=== PATIENT | male | born 1985 | race Caucasian/White ===

== ENCOUNTER 2019-02-27 15:14 | Inpatient (IN) | payer OTHER ==
[2019-02-27 15:45] LABS: #Basophils 0.1 thou/uL (0.0-0.2); #Eosinphils 0.3 thou/uL (0.0-0.7); #Lymphocytes 2.9 thou/uL (1.20-3.40); #Monocytes 0.8 thou/uL (0.11-0.59); #Neutrophils 4.6 thou/uL (1.40-6.50); %Eosinophils 3.8 % (0.0-10.0); %Lymphocytes 33.2 % (21.0-51.0); %Monocytes 8.7 % (0.0-10.0); %Neutrophils 53.2 % (42.0-75.0); Hemoglobin 9.1 g/dL (14.0-18.0); Mean Corpuscular HGB CONC 31.8 g/dL (32.0-36.0); Mean Corpuscular Hemoglobin 26.4 pg (27.0-31.0); Mean Corpuscular Volume 82.8 fL (78.0-98.0); Mean Platelet Volume 7.4 fL (7.4-10.4); Platelet Count 252 thou/uL (130-400); RBC Distribution Width 13.6 % (11.5-14.5); Red Blood Cell (RBC) Count 3.44 mill/uL (4.70-6.10); White Blood Cell (WBC) Count 8.7 thou/uL (4.8-10.8)
[2019-02-27 15:49] LABS: INR-International Normal Ratio 1.1; PTT 24.2 SEC (22.9-36.1); Prothrombin Time 13.7 SEC (12.0-14.7)
[2019-02-27 15:58] LABS: ALT (SGPT) 12 U/L (8-55); AST (SGOT) 15 U/L (5-34); Albumin 3.9 g/dL (3.5-5.0); Alkaline Phosphatase 44 U/L (40-110); Anion Gap 15 mmol/L (10-20); BUN (Urea Nitrogen) 24 mg/dL (8.9-20.6); Bilirubin, Total 0.4 mg/dL (0.2-1.2); Calc. Creatinine Clearance 0 mL/min (70-130); Calcium 8.8 mg/dL (7.8-10.44); Carbon Dioxide 23 mmol/L (22-29); Chloride 107 mmol/L (98-107); Estimated GFR-MDRD 61; Globulin 2.4 g/dL (2.4-3.5); Glucose 101 mg/dL (70-105); Potassium 3.5 mmol/L (3.5-5.1); Protein, Total 6.3 g/dL (6.0-8.3); Sodium 141 mmol/L (136-145)
[2019-02-27] MEDS ORDERED: Dextrose 5 %-0.45 % NaCl 1,000 ML IV SCH (17:45)
[2019-02-27 18:57] VITALS: BMI 31.5
[2019-02-27] MEDS ORDERED: Ondansetron PF 4 MG/2 ML Vial IVP PRN (19:38)
[2019-02-27] MEDS ORDERED: hydrALAZINE 20 MG/ML VIAL SLOW IVP PRN (19:38)
[2019-02-27] MEDS ORDERED: GoLYTELY 4,000 ml Bottle PO SCH (20:00)
[2019-02-27] MEDS: Dextrose 5 % And 0.9 % NaCl 1,000 ML IV SCH (20:00)
[2019-02-27] MEDS: Sodium Chloride 0.9% (PF) 10 ML VIAL FS PRN (20:31)
[2019-02-27] MEDS: Pantoprazole 40 MG VIAL IVP SCH (20:31)
[2019-02-27 22:08] LABS: Hemoglobin 8.5 g/dL (14.0-18.0); Platelet Count 221 thou/uL (130-400)
--- NOTE | 2019-02-28 00:04 | HP ---
PRIMARY CARE PHYSICIAN: He says he cannot remember the name, but it is at one of the outlying [facility], [place]. CHIEF COMPLAINT: "I started having bleeding last night." HISTORY OF PRESENT ILLNESS: Mr. Li is a pleasant 33-year-old gentleman who has a history of Meckel's diverticulum as a child. He says that he has a history of severe bleeding when he was around 6-years-old and required surgical resection of the Meckel's diverticulum at that time. He says he has not had any problems until last night. He says that he went to the bathroom and noticed that he had a small amount of fecal matter, but primarily blood in the toilet. He says he was not having any abdominal pain during this time. He said he had another episode at 3 a.m. and then once again at 6:00 a.m. He works nights and says he went to sleep around 6:00 a.m. and then woke up around 1:00 p.m. He said he had another episode and this time when he got off the toilet, he felt extremely dizzy. He walked a few feet toward his living room and then passed out. He says that he still feels a bit weak, but denies any chest pain. No difficulty breathing and he came to the ER for evaluation. In the ER, he had lab work done showed that his hemoglobin was low at 9.1. His creatinine was slightly elevated at 1.36, and he is being admitted for further treatment. REVIEW OF SYSTEMS: All systems were reviewed and are negative except for that mentioned in the history of present illness. PAST MEDICAL HISTORY: Significant for Meckel's diverticulum. PAST SURGICAL HISTORY: He has had exploratory lap and what sounds like resection of the Meckel's diverticulum as well as a small area of small intestines as well. ALLERGIES: PENICILLIN. SOCIAL HISTORY: He is . He is a nonsmoker. He drinks occasionally. He does not have any children currently. 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 FAMILY HISTORY: He had hypertension in his mother. CURRENT MEDICATIONS: None. He denies using any aspirin or Advil or Motrin recently. PHYSICAL EXAMINATION: GENERAL: He is alert and oriented. He appears to be in no acute distress. He is well developed and well nourished. VITAL SIGNS: Blood pressure was 134/84, heart rate 100, respiratory rate of 14, and he is afebrile. HEENT: Pupils are equal, round, and reactive to light. Extraocular muscles are intact. Sclerae anicteric. Throat, no erythema, no exudates. NECK: No adenopathy, no bruits. LUNGS: Clear to auscultation. There is no wheezing, no rales, no rhonchi. CARDIOVASCULAR: He has a normal S1 and S2. There is no S3 or S4. No murmurs, clicks, or rubs. ABDOMEN: Soft. It is nontender and nondistended. Positive for bowel sounds. No rebound. No guarding. No organomegaly. EXTREMITIES: There is no clubbing, cyanosis. No edema. NEUROLOGIC: The exam is nonfocal. LABORATORY DATA: White blood cell count is 8.7, hemoglobin is 9.1, hematocrit is 28.5, and platelet count is 252. INR is 1.1. Chemistry: Sodium 141, potassium 3.5, chloride is 107, CO2 is 23, BUN of 24, creatinine 1.36, glucose is 101. ASSESSMENT: This is a pleasant 33-year-old gentleman who has suffered what sounds like he is suffering a gastrointestinal bleed. He has had both bright red blood as well as dark blood, so therefore it is hard to determine the location. It could be again from the small intestines. He will be admitted to the [facility]. We will start him on IV fluid resuscitation. We will monitor his hemoglobin and hematocrit q.3-[address] him on IV proton pump inhibitor. Should his hemoglobin drop below 8, since this is an acute bleed, then we will likely need to transfuse him. Gastroenterology has already been consulted and the plan is for him to be prepped for a colonoscopy and possible EGD as well. 1. Hypertension. Since he will be n.p.o., we will place him on p.r.n. medications for blood pressure and we will of course hold off on any anticoagulation for deep venous thrombosis prophylaxis. Job ID: [id number]
[2019-02-28 00:41] LABS: Hemoglobin 8.4 g/dL (14.0-18.0); Platelet Count 233 thou/uL (130-400)
[2019-02-28] MEDS: Acetaminophen 325 MG TAB PO PRN ×2 (01:20→16:05)
[2019-02-28] MEDS ORDERED: GoLYTELY 4,000 ml Bottle PO SCH (03:00)
[2019-02-28] MEDS: Dextrose 5 % And 0.9 % NaCl 1,000 ML IV SCH ×3 (03:22→18:21)
[2019-02-28 06:09] LABS: Hemoglobin 8.2 g/dL (14.0-18.0); Platelet Count 271 thou/uL (130-400)
[2019-02-28 06:38] LABS: Anion Gap 12 mmol/L (10-20); BUN (Urea Nitrogen) 12 mg/dL (8.9-20.6); Calc. Creatinine Clearance 127 mL/min (70-130); Calcium 8.4 mg/dL (7.8-10.44); Carbon Dioxide 25 mmol/L (22-29); Chloride 109 mmol/L (98-107); Estimated GFR-MDRD 63; Glucose 105 mg/dL (70-105); Potassium 3.8 mmol/L (3.5-5.1); Sodium 142 mmol/L (136-145)
[2019-02-28] MEDS: Pantoprazole 40 MG VIAL IVP SCH ×2 (08:14→21:07)
--- NOTE | 2019-02-28 13:40 | OP ---
DATE OF PROCEDURE: 02/28/2019 PROCEDURES PERFORMED: Esophagogastroduodenoscopy (diagnostic) and colonoscopy with polypectomy. INDICATION FOR PROCEDURE: Hematochezia and anemia. DESCRIPTION OF PROCEDURES: After the risks and benefits of the procedures were explained to the patient including risks of bleeding, infection, perforation, reactions to anesthesia, aspiration and/or pain, informed consent was obtained. The patient was then taken to the endoscopy suite and placed in the left lateral decubitus position, followed by introduction of deep sedation with propofol by Anesthesia support. Once adequate sedation was achieved, the standard gastroscope was introduced into the mouth with intubation of the esophagus, stomach, and the proximal small intestines with the findings listed below. The patient tolerated this portion of the procedure well with no immediate perioperative complications. Upon conclusion of this portion of the procedure, all equipment was removed from the patient and the bed was rotated 180 degrees in anticipation of the colonoscopy. A digital rectal exam was then performed followed by introduction of the standard colonoscope, which was then advanced to the terminal ileum without difficulty. The quality of the prep was good to excellent with good visualization of the colonic mucosa achieved. The patient tolerated the procedure well with no immediate perioperative complications. Upon conclusion of the procedure, all equipment was removed from the patient and he was transferred back to the ICU in satisfactory condition. EGD FINDINGS: Esophagus: Normal-appearing mucosa was seen in the proximal, mid, and distal esophagus. There was no evidence of erosions, ulcerations, mass, lesions, or active/recent bleeding. Stomach: Normal-appearing mucosa was seen in the gastric cardia, fundus, body, greater curvature, and incisura. Small petechia like erythematous spots were seen in the gastric antrum surrounding the pylorus consistent with almost a GAVE type picture. However, there was no evidence of ulcerated mucosa or evidence of active/recent bleeding from this region. No biopsies were taken and no intervention was performed due to the low risk of bleeding from the source. Otherwise, there was no evidence of erosions, ulcerations, mass, lesions, or active/recent bleeding throughout the entire stomach, in fact, there was no blood seen within the stomach at all. Duodenum: Normal-appearing mucosa was seen in the duodenal bulb and second portion of the duodenum. There was no evidence of erosions, ulcerations, mass, lesions, or active/recent bleeding. IMPRESSION: 1. 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 2. Otherwise normal upper endoscopy. 3. No etiology for the patient's anemia was seen during this portion of the exam. COLONOSCOPY FINDINGS: Digital rectal exam: Normal findings were seen on digital rectal examination. Colon findings: The colonoscope was advanced to approximately 20 cm past the ileocecal valve into the terminal ileum. The terminal ileum appeared normal with no evidence of erosions, ulcerations, mass, lesions, active/recent bleeding or evidence of possible Meckel diverticulum. A surgical anastomosis was looked for, but not seen during this examination and there was no retained blood within the small intestine as well. Otherwise, normal-appearing mucosa was seen at the ileocecal valve and appendiceal orifice. Normal-appearing mucosa was also seen within the cecum and ascending colon. In the mid transverse colon, a 3 mm polyp was seen and completely removed with cold snare polypectomy, it was retrieved and placed in a specimen jar for evaluation. Normal-appearing mucosa was then seen in the distal transverse, descending, sigmoid colon, and rectum. Small nonbleeding internal hemorrhoids were seen on rectal retroflexion. IMPRESSION: 1. No evidence of gastrointestinal bleeding seen within the terminal ileum and no evidence of Meckel diverticulum based on this exam. 2. A 3 mm transverse colon polyp, status post cold snare polypectomy. 3. Small nonbleeding internal hemorrhoids. 4. No etiology for the patient's recent large volume hematochezia was seen during this portion of the examination. RECOMMENDATIONS: 1. Would continue to trend his H and H and transfuse as necessary to maintain an H and H of 7/21. 2. Continue to monitor clinically for signs of active GI bleeding. 3. If the patient exhibits continued episode of hematochezia or decrease in his H and H, we would consider a tagged red cell scan for further localization of the bleeding. If the bleeding localized to the small intestine, I would either recommend an octreotide scan versus General Surgery evaluation for possible resection. 4. Would avoid any NSAIDs during this hospitalization. 5. Would continue PPI b.i.d. at least for right now, given the GAVE type picture in the distal stomach and in light of recent GI bleed. We will continue to follow. Please call with any questions. Job ID: [id number]
--- NOTE | 2019-02-28 14:00 | CON ---
DATE OF CONSULTATION: 02/28/2019 REASON FOR CONSULTATION: Hematochezia. CONSULTING PHYSICIAN: Malvin Decker MD HISTORY OF PRESENT ILLNESS: The patient is a 33-year-old male with past medical history of Meckel diverticulum status post surgical resection and what sounds like a small bowel volvulus, presenting with complaints of hematochezia. He states that he was in his usual state of health until approximately 3 days ago when he started to have smaller, harder to pass bowel movements, that were solid in consistency (Sidney one) that did require increased straining in order to defecate. This continued over the next 3 days and yesterday after having a harder to pass bowel movement within 2 hours, he had a sensation of another bowel movement that consisted of nothing, but blood. Since that time, he has had approximately 3 to 4 additional episodes of grossly bloody bowel movements with very little stool and after the last bowel movement as he was walking to the living room, he "passed out." With the continued blood loss and with the syncopal type event, he was then brought to the [facility] ER for further evaluation. While in the ER, blood work noted that he had a significant anemia as well as an elevated BUN to creatinine ratio extending for GI bleed. Currently, he states that he is doing well and has fully tolerated the GoLYTELY prep well. He has not had any further bloody bowel movements since completing the prep. He currently denies any nausea, vomiting, fevers, chills, hematemesis, melena, dysphagia, odynophagia, or weight loss. Of note, he denies a family history of colon polyps or colon cancer. REVIEW OF SYSTEMS: A 10-category review of systems was obtained with all responses negative except for the pertinent positives as listed in HPI. 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 PAST SURGICAL HISTORY: Exploratory laparotomy for the Meckel diverticulum as well as resection of "twisted bowel." FAMILY HISTORY: Denies any GI malignancies. SOCIAL HISTORY: Denies any tobacco or illicit drug use. Drinks 1 to 2 beers every 1 to 2 weeks. OUTPATIENT MEDICATIONS: None, but does use Advil as needed, taking approximately 600 mg two times per week as well as BC Powder once every 2 weeks. ALLERGIES: PENICILLIN. PHYSICAL EXAMINATION: VITAL SIGNS: Temperature 98.1, pulse 84, blood pressure 100/50, respiratory rate 19, and saturating 99% on room air. GENERAL: The patient is lying in bed, in no acute distress. Alert and oriented x4. HEENT: Normocephalic and atraumatic. NECK: Supple. No JVD or scleral icterus noted. CARDIOVASCULAR: Regular rate and rhythm with no discernible murmurs, gallops, or rubs. RESPIRATORY: Clear to auscultation bilaterally with no discernible wheezes or rales. ABDOMEN: Normoactive bowel sounds. Soft, nontender, and nondistended. EXTREMITIES: No cyanosis, clubbing, or edema. LABORATORY DATA: CBC with a white blood cell count of 8.7, hemoglobin 8.2, hematocrit 24.7, and platelets 271. INR 1.1. Chemistry with a sodium of 142, potassium 3.8, chloride 109, CO2 of 25, BUN 12, creatinine 1.32, and glucose 105. IMAGING DATA: No current GI imaging is available for review. 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 Hematochezia: The patient is presenting with a recent history of increased constipation having smaller, harder to pass bowel movements over the last 3 days. However, yesterday after having a harder to pass bowel movement, he did experience grossly bloody bowel movements with 3 to 4 additional episodes beyond that. Upon evaluation in the ER, he was noted to have significantly decreased H and H as well as an elevated BUN to creatinine ratio, which is concerning for gastrointestinal bleed. At this time, given his syncopal type event, elevated BUN to creatinine ratio and hematochezia, both an upper and lower gastrointestinal bleed could be at the etiology for his gastrointestinal bleed. Current differential could include esophagitis, gastritis, peptic ulcer disease, arteriovenous malformation, Dieulafoy lesion, diverticular bleed (more likely), stercoral colitis, ischemic colitis (less likely) and gastrointestinal neoplasm (less likely). Recommendations; 1. Would continue to trend his H and H and transfuse as necessary to maintain an H and H of 7/21. 2. Continue to monitor clinically for signs of active gastrointestinal bleeding. 3. The patient has already been prepped for both esophagogastroduodenoscopy and colonoscopy today. We will continue n.p.o. status until after the procedures. 4. Further recommendations to follow procedures. We will continue to follow. Please call with any questions. Job ID: [id number]
[2019-02-28] MEDS ORDERED: PROPOFOL 200 MG/20 ML VIAL ONE (14:33)
--- NOTE | 2019-02-28 18:51 | PDOC.HOSPP ---
- Subjective Encounter Date: 02/28/19 Encounter Time: 10:00 Subjective: Mr. Li was seen today in follow-up of GI bleed with acute blood loss. He is feeling better this morning. No complaints of dizziness or lightheadedness,CP or SOB - Objective Vital Signs & Weight: Vital Signs (12 hours) Temp Pulse Ox 02/28/19 18:42 99 02/28/19 11:53 98.5 F 02/28/19 07:25 99 02/28/19 07:00 98.1 F Weight Weight 245 lb 13.047 oz Most Recent Monitor Data Heart Rate from ECG 81 NIBP 133/43 NIBP BP-Mean 73 Respiration from ECG 13 SpO2 98 I&O: 02/27/19 02/28/19 03/01/19 06:59 06:59 06:59 Intake Total 5448 1250 Output Total 7200 1800 Balance -9277 -649 Result Diagrams: 02/28/19 05:55 02/28/19 05:55 Hospitalist ROS - Medication Medications: Active Medications Generic Name Dose Route Start Last Admin Trade Name Freq PRN Reason Stop Dose Admin Acetaminophen 650 mg 02/28/19 01:07 02/28/19 16:05 Tylenol PO 650 mg Q6H PRN Administration Headache, Aches,mild Pain 1-3 Dextrose/Sodium Chloride 1,000 mls @ 125 mls/hr 02/27/19 19:45 02/28/19 18:21 D5 0.9% Ns IV 1,000 mls .Q8H MILES Administration Pantoprazole Sodium 40 mg 02/27/19 21:00 02/28/19 08:14 Protonix IVP 40 mg Q12HR MILES Administration Sodium Chloride 10 ml 02/27/19 19:44 02/27/19 20:31 Normal Saline Pf FS 10 ml PRN PRN Administration RECONSTITUTION - Exam Eye: PERRL, anicteric sclera Heart: RRR, no murmur, no gallops, no rubs, normal peripheral pulses Respiratory: CTAB, no wheezes, no ronchi, normal chest expansion, no tachypnea, normal percussion Gastrointestinal: soft, non-tender, non-distended, normal bowel sounds, no palpable masses, no hepatomegaly, no splenomegaly, no guarding, no rigidity Extremities: no cyanosis, no clubbing, no edema Hosp A/P (1) Acute blood loss anemia Code(s): D62 - ACUTE POSTHEMORRHAGIC ANEMIA Status: Acute (2) GI bleed Code(s): K92.2 - GASTROINTESTINAL HEMORRHAGE, UNSPECIFIED Status: Acute (3) H/O Meckel's diverticulum Code(s): Z87.19 - PERSONAL HISTORY OF OTHER DISEASES OF THE DIGESTIVE SYSTEM Status: Chronic - Plan * Discussed with Dr. Osborn. There was no evidence of bleeding from neither the EGD or Colonoscopy * Will monitor him overnight for signs of re-bleeding * Continue Protonix * May need tagged RBC scan if he bleed again. * Outpatient capsule study
[2019-02-28] MEDS ORDERED: traMADol HCl 50 MG TAB PO SCH (22:30)
[2019-02-28 22:59] LABS: Hemoglobin 7.8 g/dL (14.0-18.0)
[2019-03-01] MEDS: Fioricet 325/50/40 mg Tablet PO PRN ×5 (02:07→21:20)
[2019-03-01] MEDS: Dextrose 5 % And 0.9 % NaCl 1,000 ML IV SCH ×3 (02:11→12:08)
[2019-03-01 06:04] LABS: #Eosinphils 0.2 thou/uL (0.0-0.7); #Lymphocytes 2.5 thou/uL (1.20-3.40); #Monocytes 0.4 thou/uL (0.11-0.59); #Neutrophils 1.9 thou/uL (1.40-6.50); %Basophils 0.6 % (0.0-1.0); %Eosinophils 4.3 % (0.0-10.0); %Lymphocytes 49.2 % (21.0-51.0); Hemoglobin 7.2 g/dL (14.0-18.0); Mean Corpuscular HGB CONC 33.4 g/dL (32.0-36.0); Mean Corpuscular Hemoglobin 28.1 pg (27.0-31.0); Mean Platelet Volume 8.8 fL (7.4-10.4); Platelet Count 166 thou/uL (130-400); Red Blood Cell (RBC) Count 2.56 mill/uL (4.70-6.10)
[2019-03-01] MEDS: Pantoprazole 40 MG VIAL IVP SCH ×2 (08:16→20:27)
[2019-03-01] MEDS: Sodium Chloride 0.9% (PF) 10 ML VIAL FS PRN ×2 (08:16→20:27)
--- NOTE | 2019-03-01 11:35 | NM ---
GI bleeding exam: 03/01/2019 COMPARISON: None HISTORY: Hematochezia, negative colonoscopy and upper endoscopy TECHNIQUE: Following the intravenous administration of 27.1 mCi technetium 99m labeled tagged red blo od cells, anterior imaging of the abdomen/pelvis obtained over 90 minutes. FINDINGS: Normal blood pool activity noted. No scintigraphic evidence of active GI bleeding. IMPRESSION: Unremarkable nuclear medicine GI bleeding exam.
--- NOTE | 2019-03-01 16:53 | PDOC.HOSPP ---
- Subjective Encounter Date: 03/01/19 Encounter Time: 16:50 Subjective: Mr. Li was seen today in follow-up of GI bleed. He does not have any complaints today. He has not noted any further bleeding. - Objective Vital Signs & Weight: Vital Signs (12 hours) Temp Pulse Resp BP Pulse Ox 03/01/19 08:00 98 03/01/19 07:58 98.0 F 87 18 119/71 100 Weight Weight 245 lb 13.047 oz Most Recent Monitor Data Heart Rate from ECG 81 NIBP 133/43 NIBP BP-Mean 73 Respiration from ECG 13 SpO2 98 I&O: 02/28/19 03/01/19 03/02/19 06:59 06:59 06:59 Intake Total 5448 1250 Output Total 7200 1800 Balance -0192 -641 Result Diagrams: 03/01/19 05:38 02/28/19 05:55 Hospitalist ROS - Medication Medications: Active Medications Generic Name Dose Route Start Last Admin Trade Name Freq PRN Reason Stop Dose Admin Acetaminophen 650 mg 02/28/19 01:07 02/28/19 16:05 Tylenol PO 650 mg Q6H PRN Administration Headache, Aches,mild Pain 1-3 Acetaminophen/Butalbital/Caffeine 1 tab 02/28/19 22:17 03/01/19 12:08 Fioricet PO 03/05/19 22:18 1 tab Q4H PRN Administration Headache Pantoprazole Sodium 40 mg 02/27/19 21:00 03/01/19 08:16 Protonix IVP 40 mg Q12HR MILES Administration Sodium Chloride 10 ml 02/27/19 19:44 03/01/19 08:16 Normal Saline Pf FS 10 ml PRN PRN Administration RECONSTITUTION - Exam Eye: PERRL, anicteric sclera Heart: RRR, no murmur, no gallops, no rubs, normal peripheral pulses Respiratory: CTAB, no wheezes, no rales, no ronchi, normal chest expansion, no tachypnea, normal percussion Gastrointestinal: soft, non-tender, non-distended, normal bowel sounds, no palpable masses, no hepatomegaly, no splenomegaly, no bruit Extremities: no cyanosis, no clubbing, no edema Hosp A/P (1) Acute blood loss anemia Code(s): D62 - ACUTE POSTHEMORRHAGIC ANEMIA Status: Acute (2) GI bleed Code(s): K92.2 - GASTROINTESTINAL HEMORRHAGE, UNSPECIFIED Status: Acute (3) H/O Meckel's diverticulum Code(s): Z87.19 - PERSONAL HISTORY OF OTHER DISEASES OF THE DIGESTIVE SYSTEM Status: Chronic - Plan * GI Bleed- ? source- Tagged RBC scan noted * His hemoglobin has gone down to 7.2, I suspect due to equilibration, and not a new bleed * Will re-check in the AM. He is not symptomatic, so will hold off on transfusion * Continue Protonix * Outpatient capsule study
--- NOTE | 2019-03-01 19:31 | PRG ---
DATE OF SERVICE: 03/01/2019 REASON FOR CONSULTATION: Hematochezia. SUBJECTIVE: The patient did well overnight with no acute events or problems. He has not had a bowel movement since the colonoscopy yesterday nor has he had any additional episodes of hematochezia. He did have a decrease in his hemoglobin and hematocrit when compared to yesterday, but again he did not have any evidence of clinical GI bleeding. Currently, he states that he has a moderate headache, but otherwise is doing well. He denies any nausea, vomiting, fevers, chills, abdominal pain, GI bleeding, dysphagia, or odynophagia. OBJECTIVE: VITAL SIGNS: Temperature 98, pulse 87, blood pressure 119/71, respiratory rate 18, saturating 100% on room air. GENERAL: The patient is lying in bed, in no acute distress. Alert and oriented x4. CARDIOVASCULAR: Regular rate and rhythm. RESPIRATORY: Clear to auscultation bilaterally. ABDOMEN: Normoactive bowel sounds. Soft, nontender, nondistended. EXTREMITIES: No cyanosis, clubbing, or edema. LABORATORY DATA: CBC with a white blood cell count of 5, hemoglobin 7.2, hematocrit 21.5, platelets 166. IMAGING DATA: EGD and colonoscopy performed were performed on 02/28/2019, which showed some small petechiae like erythematous spots in the gastric antrum suspicious for a GAVE type picture, but no evidence of active or recent bleeding nor was there any blood within the upper GI tract at all. The colonoscopy showed similar findings with no evidence of blood within the terminal ileum or within the colon itself. No identifiable bleeding source was seen during the colonoscopy, as well. However, a 3 mm transverse colon polyp was seen and removed with cold snare polypectomy. ASSESSMENT AND PLAN: The patient is a 33-year-old male with past medical history of Meckel diverticulum and possible small-bowel volvulus, status post surgical resection when he was a child, presenting with hematochezia. Hematochezia: The patient initially presented with a recent history of constipation followed by hematochezia characterized as grossly bloody bowel movements. While in the [facility] ER, he was noted to have a significantly decreased H and H as well as an elevated BUN creatinine ratio concerning for GI bleed. He ultimately underwent EGD and colonoscopy on 02/28/2019, with no discernible etiology for his GI bleed. Since that time, he has not had any further episodes of hematochezia nor has he had any bowel movements, but he has had a drop in his H and H, which could be indicative of his circulating blood volume . Current differential could include arteriovenous malformation within the small bowel, Dieulafoy lesion, Meckel diverticulum (less likely) or GI neoplasm (less likely). RECOMMENDATIONS: 1. Would continue to trend his H and H and transfuse as necessary to maintain an H and H of 11/28. 2. Continue to monitor clinically for signs of active GI bleeding. 3. If the patient has a decreased H and H tomorrow morning, we will transfuse, but also we would obtain a Meckel scan for possible recurrence of his Meckel diverticulum. 4. If the patient's H and H are stable or uptrending, would then consider discharge with close followup in the GI Clinic within the next 1-2 weeks and capsule endoscopy performed at that time. 5. We will continue to follow. Please call with any questions. Job ID: [id number]
[2019-03-02] MEDS: Fioricet 325/50/40 mg Tablet PO PRN ×4 (01:30→16:11)
[2019-03-02 07:30] LABS: #Eosinphils 0.3 thou/uL (0.0-0.7); #Lymphocytes 2.6 thou/uL (1.20-3.40); #Monocytes 0.4 thou/uL (0.11-0.59); #Neutrophils 2.2 thou/uL (1.40-6.50); %Basophils 0.8 % (0.0-1.0); %Eosinophils 5.2 % (0.0-10.0); %Monocytes 7.1 % (0.0-10.0); %Neutrophils 39.9 % (42.0-75.0); Hemoglobin 7.5 g/dL (14.0-18.0); Mean Corpuscular HGB CONC 33.5 g/dL (32.0-36.0); Mean Corpuscular Hemoglobin 28.2 pg (27.0-31.0); Mean Corpuscular Volume 84.2 fL (78.0-98.0); Mean Platelet Volume 9.4 fL (7.4-10.4); Platelet Count 155 thou/uL (130-400); RBC Distribution Width 13.3 % (11.5-14.5); Red Blood Cell (RBC) Count 2.64 mill/uL (4.70-6.10); White Blood Cell (WBC) Count 5.4 thou/uL (4.8-10.8)
[2019-03-02] MEDS: Pantoprazole 40 MG VIAL IVP SCH (10:11)
--- NOTE | 2019-03-02 14:39 | PDOC.HOSPP ---
- Subjective Encounter Date: 03/02/19 Encounter Time: 14:38 Subjective: Mr. Li was seen today in follow-up of GI- Bleed. He does not have any complaints. - Objective Vital Signs & Weight: Vital Signs (12 hours) Temp Pulse Resp BP BP Pulse Ox 03/02/19 08:00 100 03/02/19 07:35 97.9 F 71 16 111/70 97 03/02/19 04:00 98.3 F 73 18 115/71 97 Weight Weight 245 lb 13.047 oz Most Recent Monitor Data Heart Rate from ECG 81 NIBP 133/43 NIBP BP-Mean 73 Respiration from ECG 13 SpO2 98 I&O: 03/01/19 03/02/19 03/03/19 06:59 06:59 06:59 Intake Total 1250 Output Total 1800 Balance -550 Result Diagrams: 03/02/19 06:41 02/28/19 05:55 Hospitalist ROS - Medication Medications: Active Medications Generic Name Dose Route Start Last Admin Trade Name Freq PRN Reason Stop Dose Admin Acetaminophen 650 mg 02/28/19 01:07 02/28/19 16:05 Tylenol PO 650 mg Q6H PRN Administration Headache, Aches,mild Pain 1-3 Acetaminophen/Butalbital/Caffeine 1 tab 02/28/19 22:17 03/02/19 10:11 Fioricet PO 03/05/19 22:18 1 tab Q4H PRN Administration Headache Pantoprazole Sodium 40 mg 02/27/19 21:00 03/02/19 10:11 Protonix IVP 40 mg Q12HR MILES Administration Sodium Chloride 10 ml 02/27/19 19:44 03/01/19 20:27 Normal Saline Pf FS 10 ml PRN PRN Administration RECONSTITUTION - Exam Eye: PERRL Heart: RRR, no murmur, no gallops, no rubs, normal peripheral pulses Respiratory: CTAB, no wheezes, no rales, no ronchi, normal chest expansion Gastrointestinal: soft, non-tender, non-distended, normal bowel sounds Extremities: no cyanosis, no clubbing, no edema Hosp A/P (1) Acute blood loss anemia Code(s): D62 - ACUTE POSTHEMORRHAGIC ANEMIA Status: Acute (2) GI bleed Code(s): K92.2 - GASTROINTESTINAL HEMORRHAGE, UNSPECIFIED Status: Acute (3) H/O Meckel's diverticulum Code(s): Z87.19 - PERSONAL HISTORY OF OTHER DISEASES OF THE DIGESTIVE SYSTEM Status: Chronic - Plan * GI Bleed- ? source- * His H&H has been stable * Will discharge home
[2019-03-02 16:58] VITALS: BP 118/75; TEMP 98.3
--- NOTE | 2019-03-03 02:07 | DIS ---
DATE OF ADMISSION: 02/27/2019 DATE OF DISCHARGE: 03/02/2019 PRIMARY CARE PHYSICIAN: At an [facility]. DISCHARGE DISPOSITION: Home. DISCHARGE DIAGNOSES: 1. Gastrointestinal bleed. 2. Acute blood loss anemia. 3. History of Meckel's diverticulum. DISCHARGE MEDICATIONS: Ferrous sulfate 325 mg twice daily. PROCEDURES DONE DURING THIS ADMISSION: The patient had an upper GI and colonoscopy which were essentially unrevealing. The patient also had a tagged red blood cell study, which was negative. CODE STATUS: Full code. ALLERGIES: PENICILLIN. HOSPITAL COURSE: Mr. Li is a pleasant 33-year-old gentleman who presented to the emergency room after suffering a severe GI bleed. He had some syncope along with this as well. He has a history of Meckel diverticulum in which he had surgical resection of this. He had a significant bleed in which his hemoglobin dropped down to 7.2 at its lowest. He was evaluated by GI and unfortunately, there was no source of the bleeding found. The plan would be for the patient to have an outpatient capsule study and since he is now clinically stable and his H and H have remained stable over the course of the past couple of days, he will be discharged home with close outpatient followup. Job ID: [id number]
== END 2019-03-02 17:00 | disposition home or self-care (01) | DRG 378 ==
LOC: SCSER 15:14 → CCU 17:45 → T4-B 02-28 17:06
PROVIDERS: ADMIT Internal Medicine; ATTEND Internal Medicine
PROC: 0DJ08ZZ Inspection of Upper Intestinal Tract, Via Natural or Artificial Opening Endoscopic (ICD-10-PCS; principal; 2019-02-28)
PROC: 0DBL8ZZ Excision of Transverse Colon, Via Natural or Artificial Opening Endoscopic (ICD-10-PCS; 2019-02-28)
DX: K92.1 Melena (principal); D62 Acute posthemorrhagic anemia; I10 Essential (primary) hypertension; K64.8 Other hemorrhoids; K63.5 Polyp of colon; Z88.0 Allergy status to penicillin; Z87.19 Personal history of other diseases of the digestive system
CPT/HCPCS: 36415; 78278; 80048; 80053; 82274; 85014; 85018; 85025; 85049; 85610; 85730; 86850; 86900; 86901; 88305; 93005; 96360; A9604; C9113; J2704

== ENCOUNTER 2019-03-14 19:00 | Outpatient (CLI) | payer OTHER | END 2019-03-14 19:01 | disposition home or self-care (01) | LOC: SLEEPLAB 19:00 | PROVIDERS: ATTEND Nurse Practitioner Family | DX: G47.33 Obstructive sleep apnea (adult) (pediatric) (principal); R53.83 Other fatigue; I10 Essential (primary) hypertension; R06.83 Snoring | CPT/HCPCS: 95806 ==

== ENCOUNTER 2022-09-04 17:30 | Outpatient (CLI) | payer BC | END 2022-09-04 17:31 | disposition home or self-care (01) | LOC: SLEEPLAB 17:30 | PROVIDERS: ATTEND Internal Medicine Critical Care Medicine | DX: G47.30 Sleep apnea, unspecified (principal); R06.83 Snoring; R53.83 Other fatigue | CPT/HCPCS: 95800 ==